=== PATIENT | male | born 1960 | race Caucasian/White ===

== ENCOUNTER 2017-02-09 18:17 | Emergency (ER) | payer MEDICAID ==
[2017-02-09 19:49] VITALS: BP 153/104
== END 2017-02-09 19:49 | disposition home or self-care (01) ==
LOC: ED 18:17
DX: J40 Bronchitis, not specified as acute or chronic (principal); I10 Essential (primary) hypertension; Z88.0 Allergy status to penicillin; Z88.5 Allergy status to narcotic agent
CPT/HCPCS: Q0092